=== PATIENT | male | born 1990 | race Caucasian/White ===

== ENCOUNTER 2016-07-07 21:10 | Emergency (ER) | payer OTHER ==
[~2016-07-07] VITALS: Ht 193 cm; Wt 119.7 kg
[2016-07-07 23:26] VITALS: BP 145/91
== END 2016-07-08 00:21 | disposition home or self-care (01) ==
LOC: ED 21:10
DX: Z20.2 Contact with and (suspected) exposure to infections with a predominantly sexual mode of transmission (principal); R03.0 Elevated blood-pressure reading, without diagnosis of hypertension
CPT/HCPCS: 87491; 87591; J0696